=== PATIENT | female | born 1975 | race African-American/Black ===

== ENCOUNTER 2019-02-13 07:25 | Emergency (ER) | payer MEDICAID ==
[~2019-02-13] VITALS: Ht 157.5 cm; Wt 77.0 kg
[2019-02-13] MEDS ORDERED: IBUPROFEN 600MG TABLET PO ONE (09:30)
[2019-02-13] MEDS ORDERED: TETANUS, DIPHTHERIA, PERTUSSIS VAC/PF 0.5ML (>7YR OLD) IM ONE (09:30)
[2019-02-13] MEDS ORDERED: BACITRACIN 15GM TUBE TOP NR (09:30)
[2019-02-13] MEDS ORDERED: BACITRACIN ZINC OINT UDPKT TOP ONE (09:30)
[2019-02-13 09:47] VITALS: BP 135/92
== END 2019-02-13 09:48 | disposition home or self-care (01) ==
LOC: ER 07:25
DX: T25.121A Burn of first degree of right foot, initial encounter (principal); T31.0 Burns involving less than 10% of body surface; F12.10 Cannabis abuse, uncomplicated; Z98.890 Other specified postprocedural states; X10.2XXA Contact with fats and cooking oils, initial encounter; Y93.89 Activity, other specified; Y92.511 Restaurant or cafe as the place of occurrence of the external cause; Y99.8 Other external cause status
CPT/HCPCS: 16000; 90471; 90715; 99283

== ENCOUNTER 2020-12-18 03:48 | Emergency (ER) | payer MEDICAID, OTHER ==
[~2020-12-18] VITALS: Ht 157.5 cm; Wt 78.0 kg
[2020-12-18] MEDS ORDERED: LIDOCAINE HCL 1% 20ML VIAL (Pyxis) INJ INFIL ONE (04:45)
[2020-12-18] MEDS ORDERED: BACITRACIN ZINC OINT UDPKT TOP ONE (04:45)
[2020-12-18] MEDS ORDERED: ACETAMINOPHEN 325MG TABLET PO ONE (04:45)
[2020-12-18] MEDS ORDERED: CEPH500T MT (06:15)
[2020-12-18] MEDS ORDERED: SULFAMETHOXAZOLE/TRIMETHOPRIM 800/160MG TABLET PO ONE (06:15)
[2020-12-18] MEDS ORDERED: CEPHALEXIN 250MG CAPSULE PO ONE (06:15)
[2020-12-18] MEDS ORDERED: IBUPROFEN 600MG TABLET PO ONE (06:15)
[2020-12-18] MEDS ORDERED: SULF1TAB48 MT (06:15)
[2020-12-18] MEDS ORDERED: NAPR-681 MT (06:15)
[2020-12-18] MEDS ORDERED: TOPUD MT (06:15)
[2020-12-18 06:46] VITALS: BP 169/99
== END 2020-12-18 06:51 | disposition home or self-care (01) ==
LOC: ER 04:02
DX: N76.0 Acute vaginitis (principal); F12.10 Cannabis abuse, uncomplicated; Z98.890 Other specified postprocedural states
CPT/HCPCS: 10160; 99284; J3490; Z7610